=== PATIENT | male | born 1980 | race Caucasian/White ===

== ENCOUNTER → 2017-04-28 | Outpatient (CLI) | payer OTHER ==
--- NOTE | 2017-04-28 16:31 | KCIC ---
Five-view lumbar spine HISTORY: Severe low back pain after an injury 5 days ago. FINDINGS: Minimal sclerosis at the anterosuperior aspect of the L3 vertebral body is probably degenerative. There is mild loss of disc space height and osteophyte formation at this level. Difficult to exclude a subtle fracture. Minimal retrolisthesis of L2 on L3 and L3 on L4. IMPRESSION: 1. Mild degenerative changes. 2. Minimal density at the anterosuperior aspect of L3 is probably degenerative. Difficult to exclude a small subtle fracture. Consider MRI for further evaluation if clinically indicated. Electronically signed by: Vidal Garnett MD (04/28/2017 4:28 PM) [facility]
== END | disposition home or self-care (01) ==
LOC: KCIC 15:33
PROVIDERS: ATTEND Family Medicine
DX: M47.896 Other spondylosis, lumbar region (principal)
CPT/HCPCS: 72110